=== PATIENT | female | born 1945 | race Caucasian/White ===

== ENCOUNTER 2016-12-16 11:59 | Inpatient (IN) ==
[2016-12-16 12:27] LABS: MANUAL DIFF NEEDED? NO
[2016-12-16 12:33] LABS: BASO% 0.3 % (0.0-0.8); EOS# 0.04 X1000 (0.0-0.7); EOS% 1.1 % (0.0-10.0); IMM GRAN# 0.04 X1000 (0.0-0.04); IMM GRAN% 1.1 % (0.0-0.5); LYMPH# 0.58 X1000 (1.2-3.4); LYMPH% 15.5 % (20.5-51.1); MCH 30.4 PG (27-31); MCHC 33.3 g/dL (33-37); MCV 91.3 FL (81-99); MONO# 0.74 X1000 (0.11-0.59); MONO% 19.7 % (1.7-9.3); MPV 12.3 FL (7.4-10.4); NEUT% 62.3 % (42.2-75.2); PLT 138 X1000 (130-400); RBC 4.27 XMIL (4.2-5.4)
[2016-12-16 12:43] LABS: INR 1.02; PROTIME 10.7 Seconds (9.2-11.7)
[2016-12-16 12:57] LABS: ALBUMIN 3.5 g/dL (3.5-5.0); CALCIUM 8.5 mg/dL (8.8-10.2); POTASSIUM 3.9 mmol/L (3.5-5.1); TOTAL BILIRUBIN 0.27 mg/dL (0.20-1.00); TOTAL PROTEIN 6.3 g/dL (6.3-8.3)
--- NOTE | 2016-12-16 12:59 | Diag Imaging Result Doc PS360 ---
CHEST-PORTABLE - 12/16/2016 INDICATION: AMS TECHNIQUE: COMPARISON: 10/26/2016 FINDINGS: There is a stable mass at the right lung base. This measures about 3 x 2 cm. No focal infiltrates, pneumothorax, or pleural effusion. IMPRESSION: Stable mass or granuloma at the right lung base. Recommend comparison with prior chest x-rays from before 2016, or else a chest CT. Electronically signed by Kane Patel 12/16/2016 12:56 PM
--- NOTE | 2016-12-16 13:07 | EKG Report ---
Test Performed on : 12/16/2016 11:58:00 AM Test Reason : AMS Blood Pressure : / mmHG Vent. Rate : 066 BPM Atrial Rate : 066 BPM P-R Int : 152 ms QRS Dur : 078 ms QT Int : 444 ms P-R-T Axes : 042 -24 004 degrees QTc Int : 465 ms Sinus rhythm. with premature supraventricular complexes. Nonspecific T wave abnormality Abnormal ECG When compared with ECG of 18-DEC-2011 11:32, premature supraventricular complexes. are now present Nonspecific T wave abnormality, worse in Inferior leads Unconfirmed Result
[2016-12-16 14:03] LABS: URINE CULTURE NEEDED? NO; URINE MICRO REVIEW NEEDED? NO; URINE SOURCE CLEAN CATCH
[2016-12-16 14:11] LABS: BILIRUBIN URINE NEGATIVE (NEGATIVE); BLOOD URINE NEGATIVE (NEGATIVE); COLOR YELLOW; GLUCOSE URINE NEGATIVE (NEGATIVE); LEUKOCYTES URINE NEGATIVE (NEGATIVE); NITRITE URINE NEGATIVE (NEGATIVE); PH URINE 5.5; PROTEIN URINE NEGATIVE (NEGATIVE); SP GRAVITY URINE 1.019; TURBIDITY URINE CLEAR (CLEAR); UROBILINOGEN URINE NORMAL (NORMAL)
[2016-12-16 14:14] LABS: UR EPITHELIAL CELLS <10 /HPF (<10); URINE BACTERIA NEGATIVE /HPF; URINE RBC <10 /HPF (<10); URINE WBC <10 /HPF (<10)
--- NOTE | 2016-12-16 14:42 | PROVIDER DOCUMENTATION ---
This chart was entered by Kristy Fu Scribe, acting as scribe for Will Gutierrez MD. HPI-General Adult - General Chief Complaint: Weakness Stated Complaint: fall/edema Time Seen by Provider: 12/16/16 12:33 Source: patient Allergies/Adverse Reactions: Patient Allergies Allergy/AdvReac Type Severity Reaction Status Date / Time No Known Allergies Allergy Verified 12/10/16 08:44 Home Medications: Home Medication List Medication Instructions Recorded Confirmed Last Taken Type Levothyroxine Sodium 50 mcg PO DAILY 11/27/14 12/10/16 10/26/16 07:00 History Hydrocodone/Acetaminophen 1 each PO Q6H PRN PRN 12/10/16 12/10/16 12/10/16 History [Hydrocodon-Acetaminophn 10-325] Modafinil 200 mg PO DAILY 12/10/16 12/10/16 Unknown History Nitrofurantoin Monohyd/M-Cryst 100 mg PO BID #20 capsule 12/10/16 Unknown Rx [Macrobid 100 mg Capsule] Oxycodone HCl/Acetaminophen 1 each PO BID PRN #10 tablet 12/10/16 Unknown Rx [Percocet 5-325 mg Tablet] Sertraline [Zoloft] 50 mg PO DAILY 12/10/16 12/10/16 Unknown History Tramadol [Ultram] 50 mg PO Q6H PRN PRN 12/10/16 12/10/16 12/10/16 History - History of Present Illness -Gen Adult Nature of Presenting Problems: Pt is a 71 yof who came to the ED with a cc of weakness for the past four weeks. Pt reports when she stands up to try to walk she just falls because she is so weak. Pt reports she fell yesterday and hurt her back. Pt denies chest pain, N/V, and fever. Location of Pain/Injury: reports: back Pain Radiation: reports: no radiation Quality of Pain: reports: dull Severity: reports: mild Onset/Duration: reports: other (4 weeks) Timing: reports: still present Context/Activities at Onset: reports: light activity Modifying Factors: improves with: movement Associated Symptoms: reports: weakness, trouble walking Similar Symptoms Previously?: No Recently seen or treated by another doctor?: No Review of Systems - Adult - REVIEW OF SYSTEMS - ADULT Constitutional: denies: chills, fever Eyes: reports: no symptoms reported Ears, Nose, Mouth & Throat: reports: no symptoms reported Cardiovascular: denies: chest pain, syncope Respiratory: reports: no symptoms reported Gastrointestinal: reports: no symptoms reported Genitourinary: reports: no symptoms reported Musculoskeletal: reports: back pain, muscle weakness. denies: bone pain, joint pain Integumentary: reports: no symptoms reported Neurological: reports: loss of balance. denies: ataxia, paresthesia Psychiatric: reports: no symptoms reported Endocrine: reports: no symptoms reported Hematologic/Lymphatic: reports: no symptoms reported Allergic/Immunologic: reports: no symptoms reported All Other Systems: Reviewed and Negative Past History - Adult - PAST MEDICAL HISTORY-ADULT Review of Records: reports: Nursing Assessment Review Major Childhood Illnesses: reports: denies history Cardiovascular: reports: denies history Respiratory: reports: denies history Gastrointestinal: reports: denies history Obstetrical/Gynecological: reports: denies history Genitourinary: reports: denies history Musculoskeletal: reports: denies history Neurological: reports: Multiple Sclerosis Psychiatric: reports: anxiety, depression Endocrine/Immune: reports: thyroid disorder (hypo) Other Conditions: reports: denies history - PRIOR SURGERIES/PROCEDURES Surgical/Procedure History: reports: cholecystectomy, back/neck - IMMUNIZATION STATUS Childhood Immunizations: See Nurse Assessment Flu Vaccine: See Nurse Assessment - FAMILY HISTORY Family History: reviewed, not pertinent Physical Exam-General - PHYSICAL EXAM-ADULT Initial Vital Signs Reviewed: Yes - CONSTITUTIONAL General Appearance: appears well, alert, no apparent distress - EYES Eyes: PERRL/EOMI, pink conjunctivae - HEAD, EARS, NOSE, MOUTH & THROAT HENMT: normocephalic/atraumatic, moist mucous membranes - NECK Neck: non-tender, full range of motion - RESPIRATORY Respiratory: chest non-tender, lungs clear - CARDIOVASCULAR Cardiovascular: normal peripheral pulses, regular rate, rhythm - GASTROINTESTINAL (ABDOMEN) Abdominal Exam: normal bowel sounds, non tender, soft - MUSCULOSKELETAL Back Exam: normal inspection, no CVA tenderness Extremity: normal range of motion, non-tender - SKIN Integumentary: normal color, normal turgor - NEUROLOGIC Neurologic: grossly normal - PSYCHIATRIC Psych/Mental Status: normal mood/affect, normal thought content, normal thought process, oriented x 3 Progress - PLAN OF CARE/RESULTS Progress/Plan/Lab Results: Vital Signs - 8 hr 12/16/16 12:11 Temperature 98.4 F Pulse Rate 64 Respiratory Rate 18 Blood Pressure 158/73 O2 Sat by Pulse Oximetry 99 Laboratory Results - last 24 hr 12/16/16 12:08 WBC 3.75 L RBC 4.27 Hgb 13.0 Hct 39.0 MCV 91.3 MCH 30.4 MCHC 33.3 RDW Std Deviation 12.8 Plt Count 138 MPV 12.3 H Immature Gran % (Auto) 1.1 H Neut % (Auto) 62.3 Lymph % (Auto) 15.5 L Floyd % (Auto) 19.7 H Eos % (Auto) 1.1 Baso % (Auto) 0.3 Immature Gran # (Auto) 0.04 Neut # (Auto) 2.34 Lymph # (Auto) 0.58 L Floyd # (Auto) 0.74 H Eos # (Auto) 0.04 Baso # (Auto) 0.01 Orders Category Date Time Status Cardiac Monitoring DIRECTED Care 12/16/16 12:17 Active Saline Loc NOW Care 12/16/16 12:17 Active CHEST-PORTABLE [RAD] Stat Exams 12/16/16 12:17 Taken CBC WITH ELECTRONIC DIFF [HEME] Stat Lab 12/16/16 12:08 Completed CK PROFILE [SP CHEM] Stat Lab 12/16/16 12:08 Received COMPREHENSIVE METABOLIC PANEL [CHEM] Stat Lab 12/16/16 12:08 Received PROTIME WITH INR [COAG] Stat Lab 12/16/16 12:08 Received PTT [COAG] Stat Lab 12/16/16 12:08 Received TROPONIN T Stat Lab 12/16/16 12:08 Received URINALYSIS W/POSS RFLX CULT-1 [URINALYSIS] Stat Lab 12/16/16 12:17 Uncollected Pulse Oximetry Stat Oth 12/16/16 12:17 Active EKG [EKG] Stat Ther 12/16/16 12:17 Ordered Result Diagrams: 12/16/16 12:08 12/16/16 12:08 - EKG 1 Time of EKG reading by physician:: 11:58 EKG Read and Signed by:: Will Gutierrez EKG Interpretation (*Must complete 3 of following elements*): Abnormal Rate: 66 (nonspecific T wave abnormality ) Rhythm: sinus rhythm w premature supraventricular complexes - CONSULTS/PCP/HOSPITALIST Notification #1 *Consult/PCP/Hospitalist*: Dr. Norton/Zaira Time Discussed: 14:41 Reason/Comments: Admit Consult Disposition: Admit Departure - Departure Time of Disposition Decision: 14:41 DIAGNOSIS: Generalized weakness, Recurrent falls, Dehydration Disposition: ADMITTED INPATIENT 09 Certified Medical Emergency: Emergent Condition: Stable - Critical Care Note This patient required my direct & personal management of CC.: No This chart was documented by the indicated scribe, (Kristy Fu Scribe) and accurately reflects the services I performed and decisions made by me, Will Gutierrez MD, as attested by the provider's signature.
--- NOTE | 2016-12-16 16:17 | HISTORY AND PHYSICAL ---
PRIMARY NEUROLOGIST: Dr. Paul in [place]. CHIEF COMPLAINT: Generalized weakness. HISTORY OF PRESENT ILLNESS: This is a 71-year-old female with history of multiple sclerosis who presented to the emergency department because of recurrent falls. According to daughter who was at bedside, reports that she is feeling weak. Patient reports many visits to the hospital because of falls, last fall a few days ago in which she had an ankle sprain in the left ankle. The patient reports that she does not remember if she was having any focal deficit like weakness in any arm or leg. She denies any fever or chills. She reports some burning on urination and apparently her primary care physician has prescribed some antibiotics. Also labs in the ER revealed creatinine of 1.4. So for those reasons, including MELISSA and UTI, general weakness, patient is being admitted to the hospital. PAST MEDICAL HISTORY: Multiple sclerosis. She is on medication. Dr. Paul is the primary neurologist. She is on medication that is given 1 time per year 5 days in a row. PAST SURGICAL HISTORY: Cholecystectomy many years ago. SOCIAL HISTORY: She denies drinking alcohol, smoking tobacco, or using illicit drugs. She lives with her . ALLERGIES: No known drug allergies. REVIEW OF SYSTEMS: Eleven systems were reviewed and all symptoms are related to H and P. PHYSICAL EXAMINATION: VITALS: Temperature 98.4 degrees, heart rate 64, respiratory rate 16, blood pressure 179/70, O2 saturation 94% on room air. GENERAL EXAMINATION: This is a 71-year-old female lying in bed, in no acute distress. HEENT: Head is normocephalic, atraumatic. Anicteric sclerae and pale conjunctivae. Mucous membranes moist. NECK: Supple. No JVD noted. No carotid bruits. No lymphadenopathy. No thyromegaly. CARDIOVASCULAR: S1, S2 heard. No murmurs, gallops, or rubs. Regular rate and rhythm. RESPIRATORY: Clear bilaterally to auscultation. No work of breathing or using accessory muscles. ABDOMEN: Soft, nontender to palpation. Bowel sounds present. No organomegaly. EXTREMITIES: No clubbing, cyanosis, or edema. Peripheral pulses present in both legs. There is in left leg with signs of left ankle sprain. NEUROLOGICAL: Patient alert and oriented x3. Able to move 4 extremities. Cranial nerves grossly normal. LABORATORY DATA: Unremarkable. ASSESSMENT AND PLAN: 1. Generalized weakness/recurrent falls. 2. Multiple sclerosis. 3. Dehydration. 4. Acute kidney injury. 5. Newly diagnosed hypertension. The patient admitted to the hospital because of generalized weakness and recurrent falls. We do not know if this patient for sure had recent multiple sclerosis flare-up. Now physical examination disclosed normal muscle strength. In any case, because also this patient was due for an MRI for followup of this multiple sclerosis, the fact is that she is getting weaker for the last month. Because of this we need to check an MRI today. Regarding acute kidney injury, we are going to provide IV fluid. Regarding general deconditioning, we are going to consult social security specialist. Further recommendations to follow according to the clinical situation with the patient. For recent hypertension, we are going to start amlodipine. cc: Narendra Engel MD
--- NOTE | 2016-12-16 16:19 | Diag Imaging Result Doc PS360 ---
MRI BRAIN W/O CONTRAST - 12/16/2016 INDICATION: MS flare up COMPARISON: None FINDINGS: There are extensive periventricular white matter hyperintensities on T2 and FLAIR weighted images, arranged perpendicular to the ventricles compatible with Salmon's fingers. No evidence of intracranial mass or hemorrhage. There is no area of restricted diffusion. Midline structures including optic chiasm and pituitary are grossly normal. IMPRESSION: Extensive, probably chronic periventricular white matter abnormalities compatible with chronic multiple sclerosis. Electronically signed by Kane Patel 12/16/2016 4:16 PM
[2016-12-16] MEDS ORDERED: ZOFRAN IV PRN (16:45)
[2016-12-16] MEDS: NS 1,000 ML IV SCH (17:43)
[2016-12-16] MEDS: LOVENOX SUBQ SCH (17:44)
[2016-12-16 19:01] LABS: URINE CULTURE NEEDED? NO; URINE MICRO REVIEW NEEDED? NO; URINE SOURCE CATH
[2016-12-16 19:05] LABS: BILIRUBIN URINE NEGATIVE (NEGATIVE); BLOOD URINE MODERATE (NEGATIVE); COLOR YELLOW; GLUCOSE URINE NEGATIVE (NEGATIVE); LEUKOCYTES URINE NEGATIVE (NEGATIVE); NITRITE URINE NEGATIVE (NEGATIVE); PROTEIN URINE NEGATIVE (NEGATIVE); SP GRAVITY URINE 1.016; TURBIDITY URINE CLEAR (CLEAR); UR EPITHELIAL CELLS >10 /HPF (<10); URINE BACTERIA NEGATIVE /HPF; URINE RBC 20-40 /HPF (<10); URINE WBC <10 /HPF (<10); UROBILINOGEN URINE NORMAL (NORMAL)
[2016-12-16] MEDS: NORVASC PO SCH (20:38)
[2016-12-17] MEDS: ULTRAM PO PRN ×2 (00:38→23:45)
[2016-12-17] MEDS: NS 1,000 ML IV SCH ×3 (05:37→21:03)
[2016-12-17 06:02] LABS: MANUAL DIFF NEEDED? NO
[2016-12-17 06:13] LABS: EOS# 0.04 X1000 (0.0-0.7); EOS% 1.4 % (0.0-10.0); HEMATOCRIT 38.8 % (37.0-47.0); HEMOGLOBIN 12.8 g/dL (12.0-16.0); LYMPH# 0.64 X1000 (1.2-3.4); LYMPH% 22.7 % (20.5-51.1); MCH 30.1 PG (27-31); MCV 91.3 FL (81-99); MONO# 0.52 X1000 (0.11-0.59); MONO% 18.4 % (1.7-9.3); MPV 12.3 FL (7.4-10.4); NEUT% 57.5 % (42.2-75.2); PLT 157 X1000 (130-400); RBC 4.25 XMIL (4.2-5.4)
[2016-12-17 06:18] LABS: CALCIUM 8.6 mg/dL (8.8-10.2); POTASSIUM 4.1 mmol/L (3.5-5.1)
[2016-12-17] MEDS: PRILOSEC PO SCH (06:42)
[2016-12-17] MEDS: SYNTHROID PO SCH (06:42)
[2016-12-17] MEDS: ZOLOFT PO SCH (08:24)
[2016-12-17] MEDS: NORVASC PO SCH ×2 (08:24→20:42)
--- NOTE | 2016-12-17 13:18 | PROGRESS NOTE ---
DATE: 12/17/2016 SUBJECTIVE: The patient is feeling fine, reports she is feeling weak in both lower extremities, mostly. OBJECTIVE: Vital signs: Temperature 97.9, heart rate 76, respiratory rate 14, blood pressure 153/85, O2 sat 100% on room air. General: This is a 71-year-old female lying in bed in no acute distress. HEENT: Head is normocephalic and atraumatic. Anicteric sclerae, pale conjunctivae. Mucous membranes are moist. Neck supple, no JVD noted, no carotid bruits, no lymphadenopathy, no thyromegaly. Cardiovascular: S1, S2 heard, no murmurs, gallops, or rubs, and regular rate and rhythm. Respiratory: Clear bilaterally to auscultation. No work of breathing or using accessory muscles. Abdomen: Soft, nontender to palpation, bowel sounds present, no organomegaly. Neurological: Patient is alert and oriented x3, moves 4 extremities. LABORATORY DATA: Reviewed. ASSESSMENT AND PLAN: 1. Generalized weakness/recent fall. 2. Multiple sclerosis. 3. Dehydration. 4. Acute kidney injury. PLAN: 1. For the generalized weakness, remote possibility of having a recent multiple sclerosis flare- up. A MRI of the brain was ordered and did not show any acute flare-up, so at this point will continue with the same management. 2. For dehydration, has been given IV fluids. 3. For acute kidney injury, IV fluids, as well. 4. For physical conditioning, Physical Therapy has been consulted. We are waiting for older adult social work specialist to help us find the patient a bed in a rehab facility. cc: Narendra Engel MD
--- NOTE | 2016-12-17 13:53 | ECHO REPORT ---
ORDER DATE: 12/16/2016 MEASUREMENTS: 1. Left ventricular end-diastolic diameter 5.1. 2. Systolic diameter 3.4. 3. Septal thickness 1.9. 4. Posterior wall thickness 1.0. 5. Left atrium 3.7. 6. Aortic root 2.9 SUMMARY: 1. Fair quality study. 2. Aortic valve is trileaflet and opens normally on 2-dimensional images with a peak gradient of 10 mmHg. There is mild thickening of anterior and posterior mitral valve leaflets. There is very mild mitral regurgitation. Tricuspid and pulmonic valves are without structural abnormality with mild tricuspid regurgitation and mild pulmonic insufficiency. The estimated systolic PA pressure by Doppler is 35 to 40 mmHg. The aortic root is normal size. 3. Normal left ventricular dimensions suggested. Estimated left ejection fraction appears to be at least 60%. No regional wall motion abnormalities are evident. Doppler suggests grade 1 left ventricular diastolic dysfunction. Left atrium, right atrium, and right ventricle are normal in size with normal right ventricular systolic function. 4. No pericardial effusion. 5. Appearance of inferior vena cava suggests normal central venous pressure. CONCLUSIONS: 1. Aortic valve sclerosis without stenosis. 2. Very mild mitral regurgitation. 3. Mild tricuspid regurgitation with mild pulmonary hypertension by Doppler. 4. Estimated left ejection fraction at least 60%. 5. Grade 1 left ventricular diastolic dysfunction suggested. cc: MD Narendra Hancock MD
[2016-12-17] MEDS: LOVENOX SUBQ SCH (18:05)
[2016-12-18] MEDS ORDERED: G.I. COCKTAIL PO ONE (05:26)
[2016-12-18] MEDS: PRILOSEC PO SCH (06:04)
[2016-12-18] MEDS: SYNTHROID PO SCH (06:04)
[2016-12-18 06:23] LABS: MANUAL DIFF NEEDED? NO
[2016-12-18 06:30] LABS: EOS# 0.03 X1000 (0.0-0.7); EOS% 1.4 % (0.0-10.0); HEMATOCRIT 40.4 % (37.0-47.0); HEMOGLOBIN 13.4 g/dL (12.0-16.0); LYMPH# 0.53 X1000 (1.2-3.4); LYMPH% 24.7 % (20.5-51.1); MCH 29.8 PG (27-31); MCHC 33.2 g/dL (33-37); MONO# 0.31 X1000 (0.11-0.59); MONO% 14.4 % (1.7-9.3); MPV 12.5 FL (7.4-10.4); NEUT% 59.5 % (42.2-75.2); PLT 142 X1000 (130-400); RBC 4.49 XMIL (4.2-5.4)
[2016-12-18 06:46] LABS: CALCIUM 8.8 mg/dL (8.8-10.2); POTASSIUM 3.3 mmol/L (3.5-5.1)
[2016-12-18] MEDS: NORVASC PO SCH ×2 (10:31→20:49)
[2016-12-18] MEDS: ZOLOFT PO SCH (10:32)
[2016-12-18] MEDS: NS 1,000 ML IV SCH ×2 (10:36→12:40)
--- NOTE | 2016-12-18 15:38 | PROGRESS NOTE ---
DATE: 12/18/2016 SUBJECTIVE: Patient is feeling fine. Still reporting feeling weak. OBJECTIVE: Vital Signs: Temperature 97.6 degrees, heart rate 78, respiratory rate 20, blood pressure 148/75, O2 saturation 97% on room air. General examination: This is a 71-year-old female lying in bed, in no acute distress. HEENT: Head is normocephalic, atraumatic. Anicteric sclerae. Pale conjunctivae. Mucous membranes moist. Neck: Supple. No JVD noted. No carotid bruits. No lymphadenopathy. No thyromegaly. Cardiovascular: S1 and S2 heard. No murmurs, gallops, or rubs. Regular rate and rhythm. Respiratory: Clear bilaterally to auscultation. No work of breathing or using accessory muscles. Abdomen: Soft. Nontender to palpation. Bowel sounds present. No organomegaly. Extremities: No clubbing, cyanosis, or edema. Peripheral pulses present in both legs. Neurological: Patient is alert and oriented x3. Able to move 4 extremities. Cranial nerves 2 through 12 grossly normal. LABORATORY DATA: Reviewed. ASSESSMENT AND PLAN: 1. Generalized weakness/recent fall. 2. Multiple sclerosis. 3. Acute kidney injury. 4. Dehydration. PLAN: The patient has been evaluated here for generalized weakness and recent falls. MRI to rule out any MS flare up did not show any acute abnormality. For dehydration, we continue with IV fluids. For physical deconditioning, physical therapy has been consulted and definitely she will need to go to rehab facility, so a social work therapist consult has been placed. Will be waiting for them. As soon as we get a bed for this patient, patient can been discharged. We anticipate that could next Monday considering that we need to get a rehab bed for this patient. cc: Narendra Engel MD
[2016-12-18] MEDS: LOVENOX SUBQ SCH (17:47)
[2016-12-18] MEDS: ULTRAM PO PRN (20:55)
[2016-12-19] MEDS: ULTRAM PO PRN (05:42)
[2016-12-19 06:29] LABS: MANUAL DIFF NEEDED? NO
[2016-12-19] MEDS: PRILOSEC PO SCH (06:29)
[2016-12-19 06:30] LABS: BASO% 0.3 % (0.0-0.8); EOS# 0.04 X1000 (0.0-0.7); EOS% 1.2 % (0.0-10.0); HEMATOCRIT 40.7 % (37.0-47.0); HEMOGLOBIN 13.5 g/dL (12.0-16.0); IMM GRAN# 0.02 X1000 (0.0-0.04); IMM GRAN% 0.6 % (0.0-0.5); LYMPH# 0.72 X1000 (1.2-3.4); LYMPH% 21.1 % (20.5-51.1); MCH 30.3 PG (27-31); MCHC 33.2 g/dL (33-37); MCV 91.3 FL (81-99); MONO% 17.6 % (1.7-9.3); MPV 12.1 FL (7.4-10.4); NEUT% 59.2 % (42.2-75.2); PLT 138 X1000 (130-400); RBC 4.46 XMIL (4.2-5.4)
[2016-12-19] MEDS: SYNTHROID PO SCH (06:30)
[2016-12-19 06:51] LABS: CALCIUM 8.9 mg/dL (8.8-10.2); POTASSIUM 4.3 mmol/L (3.5-5.1)
--- NOTE | 2016-12-19 07:08 | EKG Report ---
Test Performed on : 12/18/2016 04:18:08 AM Test Reason : chest burning Blood Pressure : / mmHG Vent. Rate : 073 BPM Atrial Rate : 072 BPM P-R Int : 090 ms QRS Dur : 086 ms QT Int : 436 ms P-R-T Axes : 051 -16 065 degrees QTc Int : 480 ms Undetermined rhythm with premature ventricular complexes. Otherwise normal ECG When compared with ECG of 16-DEC-2016 11:58, Current undetermined rhythm precludes rhythm comparison, needs review Non-specific change in ST segment in Inferior leads Nonspecific T wave abnormality, improved in Inferior leads Nonspecific T wave abnormality no longer evident in Anterior leads Confirmed by Cooper GUERRERO, Romero Garcia ([id number]) on 12/20/2016 8:19:58 AM
[2016-12-19] MEDS: NORVASC PO SCH ×2 (10:05→20:53)
[2016-12-19] MEDS: ZOLOFT PO SCH (10:10)
[2016-12-19] MEDS: NS 1,000 ML IV SCH ×2 (10:11→15:09)
--- NOTE | 2016-12-19 13:49 | PROGRESS NOTE ---
DATE: 12/19/2016 SUBJECTIVE: The patient was seen and examined. She does complain of generalized weakness that has not been significantly improved since admission. She denies having any cough, denies having any shortness of breath, denies having any fever or chills. OBJECTIVE: Vital Signs: Blood pressure 136/68, pulse of 70, respiration 20, temperature 98.2 degrees, saturations of 97% in room air. General appearance: Obese white female in no acute distress. HEENT: Anicteric sclerae and conjunctivae. Neck: Supple. No JVD. No bruit. Cardiovascular: S1, S2, normal rate and rhythm. No murmur, rubs, or gallops. Pulmonary: Clear to auscultation bilaterally. GI: Soft, nontender, nondistended. Normoactive bowel sounds. Musculoskeletal: Upper extremity is normal strength. Lower extremities about 4/5 bilaterally. DIAGNOSTIC DATA: Laboratory: White count today is 3.41, hemoglobin 13.5, hematocrit of 40.7, platelets of 138,000. Chemistries: Sodium 152, potassium of 4.3, chloride 103, bicarb 28, BUN 9, creatinine 1.2, glucose of 83. Echocardiogram showed aortic valve scleroses, no stenosis, very mild mitral valve regurgitation and grade 1 diastolic dysfunction. MRI showed chronic white matter changes consistent with chronic MS. ASSESSMENT AND PLAN: A 71-year-old with a history of multiple sclerosis, is under treatment yearly, admitted to the hospital for feeling poorly and weak. 1. Generalized weakness. Questionable multiple sclerosis flare, but the MRI did not show any acute abnormalities. We will consult neurologist. Questionable benefits of IV steroid. 2. Acute renal insufficiency. Resolved. 3. Dehydration. Resolved. 4. Hypothyroidism. Continue Synthroid. 5. Depression. Continue Zoloft. 6. Code status. The patient is a full code.
[2016-12-19] MEDS: LOVENOX SUBQ SCH (18:48)
[2016-12-20] MEDS: NS 1,000 ML IV SCH ×2 (02:17→18:43)
[2016-12-20] MEDS: PRILOSEC PO SCH (06:07)
[2016-12-20] MEDS: SYNTHROID PO SCH (06:07)
[2016-12-20] MEDS: ULTRAM PO PRN ×2 (06:20→18:32)
[2016-12-20] MEDS ORDERED: SOLU-MEDROL IV ONE (09:11)
[2016-12-20] MEDS ORDERED: SOLU-MEDROL IV SCH (09:15)
--- NOTE | 2016-12-20 09:33 | PROGRESS NOTE ---
DATE: 12/20/2016 SUBJECTIVE: The patient is feeling about the same. Still having some weakness and pain in her leg. She denies having any fever or chills. Denies having any nausea, vomiting, or diarrhea. OBJECTIVE: Vital Signs: Blood pressure of 137/50, pulse of 64, respirations 20, temperature 97.6 degrees, saturation of 95% on room air. General Appearance: An elderly, white female in no acute distress. HEENT: Anicteric sclerae. Clear conjunctivae. Neck: Supple. No JVD. No bruits. Cardiovascular: S1 and S2. Normal rate and rhythm. No murmurs, rubs, or gallops. Pulmonary: Clear to auscultation bilaterally. GI: Soft, nontender, nondistended. Normoactive bowel sounds. Musculoskeletal: No clubbing, cyanosis, or edema. Laboratory: There is no laboratory ordered for today. ASSESSMENT AND PLAN: This is a 71-year-old, white female with a history of multiple sclerosis, admitted to the hospital for falling. 1. Generalized weakness and falling. MRI did not show any new evidence of acute abnormalities. We asked Dr. Abdi to see the patient and give me his input regarding the benefits of steroid. Hopefully, Dr. Abdi will have a chance to see her today. 2. Acute renal insufficiency, resolved. 3. Dehydration, resolved. 4. Hypothyroidism. Continue Synthroid. 5. Depression. Continue Zoloft. CODE STATUS: The patient is a full code.
[2016-12-20] MEDS: ZOLOFT PO SCH (09:44)
[2016-12-20] MEDS: NORVASC PO SCH ×2 (09:44→21:00)
[2016-12-20] MEDS ORDERED: SOLU MEDROL IV SCH (10:00)
[2016-12-20] MEDS ORDERED: D5W IV SCH (10:00)
--- NOTE | 2016-12-20 13:59 | CONSULTATION ---
DATE OF CONSULTATION: 12/20/2016 REQUESTING PHYSICIAN/REASON FOR CONSULTATION: The patient is seen in consultation at the request of Dr. Estrada for evaluation of possible multiple sclerosis flare. HISTORY OF PRESENT ILLNESS: The patient is a 71-year-old right-handed female with a history of multiple sclerosis, being followed by a physician in [place], who is admitted with recurrent falls and generalized weakness. She reports that 3 weeks ago she started having repeated falls when she would stand up to walk. She does not lose consciousness. There is no warning. She cannot quite figure out why she is falling. She says her legs feel weak, but she denies paresthesias. She says her legs do not feel stiff. She did sprain her left ankle 2 weeks ago with a fall, and that has been sore since then. She denies any bowel or bladder changes, although she has urinated on herself twice just because she was not able to get to the bathroom when she had to go because of her falling. She denies fever, chills, rash. She mentions having some double vision once in the last few weeks. She reports she was diagnosed with multiple sclerosis about 15 years ago. She thinks she was on something orally, but she is really not sure. She does not recall ever having discrete exacerbations of her multiple sclerosis, although she had some tingling in both of her hands when she was diagnosed. She has not been admitted to the hospital for exacerbations requiring Solu- Medrol. She does not recall being on medications for MS recently except for getting Lemtrada infusion 1 time for 5 days approximately 1 year ago with her current neurologist. She says her sister from multiple sclerosis before there were good treatments. On admission, she was noted to have a UTI, a creatinine of 1.4 with acute kidney injury. She has had a noncontrast brain MRI that did not show any obvious acute findings. It did show multiple periventricular lesions that would be consistent with multiple sclerosis. PAST MEDICAL HISTORY: 1. Multiple sclerosis diagnosed 15 years ago, received Lemtrada infusion [address] Paul is her neurologist. 2. Cholecystectomy years ago. SOCIAL HISTORY: She denies tobacco, alcohol, or illicit drug use. She is and lives with her . FAMILY HISTORY: She reports multiple sclerosis in her sister who from this. ALLERGIES: No known drug allergies. MEDICATIONS: Noted in the chart. REVIEW OF SYSTEMS: Balance of 12 was conducted and is otherwise negative except that detailed in the HPI. PHYSICAL EXAMINATION: Vital Signs: She is afebrile. Blood pressure 137/50, pulse 64. General: She is supine in bed, cooperative, in no acute distress. Neck: Supple. No carotid bruits. Cardiovascular: Regular rate and rhythm. No murmurs appreciated. Lungs: Clear to auscultation anteriorly. Abdomen: Soft, nontender. Extremities: Warm and well perfused. She has got some bruising around the left ankle. Neurologic: She is awake and alert. Fully oriented. Speech is fluent. Attention and concentration intact. No language disturbance. Cranial nerves: Pupils are equal, round, and reactive to light. Conjugate gaze. Ocular movements are intact. Face symmetric with equal activation. Facial sensation is intact. Tongue protrudes midline. Palate elevates symmetrically. Shoulder shrug is full bilaterally. No pronator drift. Strength is tested and is 5/5 throughout. Unable to test the left ankle. Tone is normal. Sensory exam, she reports a length dependent sensory loss to vibration and temperature in the very distal legs. Otherwise intact. There is no sensory level that I can tell. There is no asymmetry to the sensory exam. Reflexes are reduced 1+ throughout, but absent at the ankles. Her toes are extensor bilaterally. No clonus on the right, unable to test on the left. Coordination is intact as tested. I did not test her gait. DIAGNOSTICS: A brain MRI without contrast on 12/16/2016, this was personally reviewed. She does have extensive periventricular white matter findings, which would be compatible with multiple sclerosis. There is no contrast with this study. Her white count is 3.4; hemoglobin, hematocrit, and platelets are normal. Chemistry panel notable for creatinine of 1.2. AST and ALT are within normal limits. Alkaline phosphatase 116, lipase 43. Her urinalysis showed moderate blood, 20 to 40 reds, no whites, no bacteria , and greater than 10 epithelial cells. ASSESSMENT AND PLAN: This is a 71-year-old right-handed female with a history of multiple sclerosis, received Lemtrada 1 year ago, who presents with recurrent falls and generalized weakness for the last 3 weeks. Recurrent falls and generalized weakness: She was treated for a urinary tract infection and acute kidney injury on admission. It is not clear at this time what is causing her falls and generalized weakness. I would like to obtain contrasted pictures of her brain MR for further evaluation of active disease. I would also like to obtain an MRI of the cervical and thoracic spine with contrast. These are to evaluate for active multiple sclerosis. I would hold off on steroids unless we have a diagnosis of active multiple sclerosis exacerbation. We will know this once the MRIs are obtained. Thank you for this consultation. We will follow. cc: Zayda Rojas MD MTDD
--- NOTE | 2016-12-20 16:57 | Diag Imaging Result Doc PS360 ---
EXAM: MRI C SPINE W/WO CONTRAST HISTORY: r/o active MS flare TECHNIQUE: Sagittal and axial images obtained in multiple pulse sequences. These were followed by postcontrast axial and sagittal images. COMPARISON: None. FINDINGS: There is good alignment of cervical spine. No precervical soft tissue swelling. No subluxation. Mild to moderate bone spurring in the mid and lower cervical spine. C2-3: Normal disc. No spinal stenosis or cord compression. Neither neural foramen is narrowed. C3-4: Normal disc. No spinal stenosis or cord compression. Neither neural foramen is narrowed. C4-5: Tiny disc bulge. Mild spinal stenosis. No cord compression. Minimal narrowing of each neural foramen. C5-6: There is a small bulging disc. No spinal stenosis or cord compression. Neither neural foramen is narrowed. C6-7: Tiny disc bulge. No spinal stenosis or cord compression. Mild narrowing of the left neural foramen. C7-T1: Normal disc. No spinal stenosis or cord compression. Neither neural foramen is narrowed. No disc herniation. No disc fragment. No enhancing lesion on the postcontrast images. IMPRESSION: [id number] degenerative bone spurring with several small bulging discs resulting in mild spinal stenosis, but no cord compression, disc herniation, or disc fragment. Electronically signed by Jose Ramon Hobson 12/20/2016 4:55 PM
--- NOTE | 2016-12-20 17:17 | Diag Imaging Result Doc PS360 ---
EXAM: MRI BRAIN W W/O CONTRAST INDICATION: r/o active MS flare COMPARISON: 12/16/2016 FINDINGS: There is no evidence of acute infarct. There is extensive T2/FLAIR signal hyperintensity in the periventricular and subcortical white matter consistent with chronic multiple sclerosis. It is possible that there is also a component of white matter microangiopathy. These lesions are completely stable as compared to the very recent previous study. None of these lesions exhibit enhancement. There is no other abnormal parenchymal enhancement. There is mild diffuse dural enhancement, however. The dura does not appear thickened or nodular. Although nonspecific, often this pattern is associated with cerebral hypotension. Correlate with the patient's history for potential precipitating factors such as a recent lumbar puncture. There is no discrete intracranial mass, mass effect, or intracranial hemorrhage. The surrounding soft tissues and bony structures are essentially unremarkable. IMPRESSION: 1.Stable T2/FLAIR signal abnormalities in the periventricular and subcortical white matter consistent with known multiple sclerosis. 2.No evidence of abnormal enhancement involving the brain parenchyma. 3.Mild diffuse dural enhancement. Please see above discussion. Electronically signed by Henry Major 12/20/2016 5:14 PM
--- NOTE | 2016-12-20 17:22 | Diag Imaging Result Doc PS360 ---
EXAM: MRI THORACIC SPINE W/WO CONTR INDICATION: r/o active MS flare COMPARISON: None. FINDINGS: There is no definite T2 signal abnormality involving the thoracic spinal cord to indicate demyelination plaques. There is no evidence of abnormal cord enhancement. There is mild disc desiccation at T11-12. There is no evidence of significant disc pathology, otherwise. The central canal appears to be widely patent. Surrounding soft tissues are essentially unremarkable. IMPRESSION: Grossly normal thoracic cord signal with no discrete thoracic cord demyelination plaques. Electronically signed by Henry Major 12/20/2016 5:19 PM
[2016-12-20] MEDS: LOVENOX SUBQ SCH (18:33)
[2016-12-21] MEDS: PRILOSEC PO SCH (05:59)
[2016-12-21] MEDS: SYNTHROID PO SCH (06:00)
[2016-12-21] MEDS: NS 1,000 ML IV SCH ×2 (06:01→19:12)
[2016-12-21 06:58] LABS: HEMATOCRIT 36.7 % (37.0-47.0); HEMOGLOBIN 12.2 g/dL (12.0-16.0); IMM GRAN# 0.02 X1000 (0.0-0.04); IMM GRAN% 0.4 % (0.0-0.5); LYMPH# 0.51 X1000 (1.2-3.4); LYMPH% 9.8 % (20.5-51.1); MANUAL DIFF NEEDED? YES; MCHC 33.2 g/dL (33-37); MCV 90.2 FL (81-99); MONO% 1.9 % (1.7-9.3); MPV 12.6 FL (7.4-10.4); NEUT% 87.9 % (42.2-75.2); PLT 132 X1000 (130-400); RBC 4.07 XMIL (4.2-5.4)
[2016-12-21 07:33] LABS: CALCIUM 8.9 mg/dL (8.8-10.2)
[2016-12-21 07:35] LABS: BANDS 6 % (0-1); LYMPHS 10 % (21-51); MONO 2 % (1-9)
--- NOTE | 2016-12-21 10:49 | PROGRESS NOTE ---
DATE: 12/21/2016 Ms. Layne is awake, alert, attentive. She reports some improvement in her strength. She felt generally weak and had trouble getting into the car several days ago, just prior to admission here. She was admitted 5 days ago, but today she reports she is feeling stronger and stronger. Her MRI scans were done yesterday and showed no definite enhancing lesions to suggest active MS plaques. Therefore, I do not think we need to add steroids at this point. I encouraged her to follow up with Dr. Paul when she is discharged. She believes that she may have missed an appointment with him recently or perhaps while she has been here in this hospital. Thanks for asking us to see Ms. Layne. cc: MD RREE Byers III
[2016-12-21] MEDS: ZOLOFT PO SCH (10:50)
[2016-12-21] MEDS: NORVASC PO SCH ×2 (10:50→20:28)
--- NOTE | 2016-12-21 12:52 | PROGRESS NOTE ---
DATE: 12/21/2016 SUBJECTIVE: The patient is feeling better. She thinks she has more strength. Has not had any steroids yet. No nausea, no vomiting. No blurry vision. Vital signs: Blood pressure is 129/63, pulse of 67, respirations 15, temperature 97.6 degrees, sat 93% on room air. General appearance: Obese white female in no acute distress. HEENT: Anicteric. Clear conjunctivae. Neck: Supple. No JVD. No bruit. Cardiovascular: S1, S2. Normal rate and rhythm. No murmur, rubs, or gallops. Pulmonary: Clear to auscultation bilaterally. GI: Soft, nontender, nondistended. Normoactive bowel sounds. Musculoskeletal: No clubbing, cyanosis, or edema. Neuro exam: Lower extremity strength is good, 5/5 equally. Upper extremities about 5/4 bilaterally. No unilateral deficits noted. LABORATORY: White count 5.21, hemoglobin 12.2, hematocrit of 36.7, platelets of 132,000. Chemistry: Sodium 143, potassium 4.5, chloride 107, bicarb 24, BUN 18, creatinine 1.1. Glucose of 162. MRIs were reviewed. No acute changes from her MS standpoint. ASSESSMENT AND PLAN: This is a 71-year-old white female admitted to the hospital for weakness and falling. 1. Weakness and falling. Does not like the patient is having acute exacerbation from her CHF. Neurologist saw the patient and did not recommend a steroid. We will continue physical therapy. We will get the patient to a rehab hopefully by tomorrow. 2. Depression. Continue Zoloft. 3. Chronic pain, p.r.n. Ultram. 4. Hypothyroidism. Continue Synthroid. 5. Hypertension. Keep the patient on Norvasc. DISPOSITION: Is pending for rehab.
[2016-12-21] MEDS: LOVENOX SUBQ SCH (19:10)
[2016-12-22] MEDS: SYNTHROID PO SCH (06:08)
[2016-12-22] MEDS: PRILOSEC PO SCH (06:08)
[2016-12-22] MEDS: NORVASC PO SCH (09:55)
[2016-12-22] MEDS: ZOLOFT PO SCH (09:55)
[2016-12-22] MEDS: NS 1,000 ML IV SCH (09:59)
--- NOTE | 2016-12-22 12:19 | PROGRESS NOTE ---
DATE: 12/22/2016 SUBJECTIVE: The patient was seen up in the chair and reading her newspaper. No complaint of weakness today. OBJECTIVE: Vital signs: Blood pressure 121/66, pulse of 64, respirations 16, temperature 97.6 degrees, sat of 95% on room air. General appearance: Well-developed, well-nourished white female in no acute distress. HEENT: Anicteric sclerae. Clear conjunctivae. Neck: Supple. No JVD. No bruit. Cardiovascular: S1, S2. Normal rate and rhythm. No murmur, rubs, or gallops. Pulmonary: Clear to auscultation bilaterally. GI: Soft, nontender, nondistended. Normoactive bowel sounds. Musculoskeletal: No clubbing, cyanosis, or edema. ASSESSMENT AND PLAN: This is a 71-year-old with multiple sclerosis admitted to the hospital for recurrent falling and weakness: 1. Recurrent falling and weakness. MRI did not show any evidence of acute exacerbation of multiple sclerosis. We will have neurology following. We will get the patient to rehabilitation today. The patient is doing well. Her weakness has improved.
--- NOTE | 2016-12-22 12:49 | DISCHARGE SUMMARY ---
ADMISSION DATE: 12/16/2016 DISCHARGE DATE: CONSULTATIONS: Zayda Rojas MD - Neurology. PERTINENT PROCEDURES: 1. MRI showed extensive probably chronic periventricular white matter abnormalities compatible with chronic multiple sclerosis. 2. Echocardiogram showed very mild mitral regurgitation. Mild tricuspid regurgitation with mild pulmonary hypertension. Estimated EF of 65 % with grade 1 left ventricular diastolic dysfunction. 3. Second brain MRI showed a stable T2 flair signal abnormality in the periventricular and subcortical white matter, consistent with no multiple sclerosis. No evidence of abnormal enhancement involving the brain parenchyma. Mild diffuse dural enhancement. 4. Cervical spine MRI showed [id number] degenerative bone spurring with several small bulging disks resulting in mild spinal stenosis but no cord compression, disk herniation, or disk fragment. 5. Thoracic spine CT is grossly normal thoracic cord signal with no discrete thoracic cord demyelination plaque. DISCHARGE DIAGNOSES: 1. Weakness with multiple falls. They do not believe that the patient has had an acute exacerbation from her multiple sclerosis. She was followed by Neurology here. They did not recommend any steroids. Discontinued with physical therapy. The patient will be discharged to rehab today. 2. Depression. Continue Zoloft. 3. Chronic pain. Continue Ultram. 4. Hypothyroidism. Continue Synthroid. 5. Hypertension. Will continue the patient on Norvasc that was initiated this hospital stay. HOSPITAL COURSE: Briefly, Ms. Layne is a 71-year-old female, who carries a past medical history of multiple sclerosis and depression. She is followed by Dr. Paul in [place], as her primary neurologist. Ms. Layne presented to the emergency department because of recurrent falls. Her daughter reported that she had been feeling weak and the patient reports many visits to the hospital because of falls. The last fall was a few days ago , which she had an ankle sprain to her left ankle. The patient did not remember having any focal deficits, like weakness in any arm or leg. She had been to see her primary care physician for a UTI, who prescribed antibiotics. Laboratory data in the ED revealed a creatinine of 1.4. Her urinalysis revealed a UTI, as well as an acute kidney injury. She was started on IV hydration, admitted to the floor. Regarding her general deconditioning, physical therapy was consulted , as well as social work administrator for rehab placement. The patient was hypertensive on arrival. She was started on amlodipine. She underwent a brain MRI x2, cervical spine, as well as thoracic spine MRI. She was also seen by Neurology for evaluation of a possible MS flare; however, all workup was negative and they did not recommend the patient be put on steroids, just to continue with physical therapy. She has been encouraged to followup with her primary neurologist, Dr. Paul, when she is discharged from rehab. The patient does have rehab placement today. PHYSICAL EXAMINATION: Vital signs: At time of her discharge, temperature is 97.6 degrees, heart rate 64, respirations 16, blood pressure 121/66, SaO2 95% on room air. DISCHARGE MEDICATIONS: 1. Norvasc 10 mg p.o. daily. 2. Levothyroxine 100 mcg p.o. daily. 3. Zoloft 50 mg p.o. daily. 4. Ultram 50 mg p.o. q.6 hours p.r.n. FOLLOWUP: The patient is being discharged to rehab facility. She will follow up with her primary neurologist in [place], as well as her primary care physician after discharge from rehab. Patient can return to the ED for any worsening of symptoms. DISCHARGE TIME: Thirty minutes. Dictated by NOE Severino for Harjinder Estrada MD Addendum: I personally evaluated and examined the patient in conjunction to the TABLEAU ARCHITECT and agreed with her assessment and dispositions. RERE
[2016-12-22 13:21] VITALS: BP 127/68
== END 2016-12-22 16:56 ==
LOC: ED 11:59 → 3N 16:03 → SUATTDRO 16:03
PROVIDERS: ATTEND Internal Medicine